=== PATIENT | female | born 1935 | race Caucasian/White ===

== ENCOUNTER 2018-11-04 15:51 | Emergency (ER) | payer MEDICARE, OTHER ==
[~2018-11-04] VITALS: Ht 165.1 cm; Wt 59.1 kg
[2018-11-04 15:52] VITALS: BP 134/68
[2018-11-04] MEDS ORDERED: ATOR1TAB21 PO (16:35)
[2018-11-04] MEDS ORDERED: PLAV1TAB2 PO (16:35)
--- NOTE | 2018-11-04 16:36 | REP ---
Clinical: Trauma . Findings: Age-related atrophy and microvascular ischemic changes are appreciated. The ventricles and sulci are symmetric. Suarez-white differentiation is maintained. There is no evidence for acute intracranial hemorrhage, mass/mass effect, pathology or infarction. No extra-axial fluid collection. Calvarium is intact. Partial opacification of the ethmoid and sphenoid sinuses may reflect mild chronic sinus disease. Impression: Age related atrophy and microvascular ischemic changes. No acute intracranial hemorrhage, infarction, or mass/mass effect. Electronically Signed by Zack Gold MD 11/04/2018 04:27 P
--- NOTE | 2018-11-04 16:40 | REP ---
Clinical: Trauma. Fall. Technique: Axial noncontrast images from the skull base to the thoracic inlet with coronal and sagittal re-formations. Findings: Moderate/advanced multilevel degenerative disc osteophyte complexes are appreciated. No acute fracture / compression injury or acute subluxation noted. Spinal canal is patent. Posterior elements and spinous processes are intact. Paravertebral soft tissues are within normal limits. Lung apices are clear. Impression: Moderate to advanced multilevel degenerative spondylosis. No acute fracture / compression injury or acute subluxation. Electronically Signed by Zack Gold MD 11/04/2018 04:32 P
== END 2018-11-04 17:27 | disposition home or self-care (01) ==
LOC: M ED 15:51
DX: S01.01XA Laceration without foreign body of scalp, initial encounter (principal); W18.39XA Other fall on same level, initial encounter; Y92.89 Other specified places as the place of occurrence of the external cause; I10 Essential (primary) hypertension; Z79.899 Other long term (current) drug therapy; Z79.01 Long term (current) use of anticoagulants; Z88.8 Allergy status to other drugs, medicaments and biological substances

== ENCOUNTER 2018-11-18 11:18 | Inpatient (IN) | payer MEDICARE, OTHER ==
[~2018-11-18] VITALS: Ht 167.6 cm; Wt 71.1 kg
[~2018-11-18 11:18] MED LIST: ATOR1TAB21 PO; PLAV1TAB2 PO
[2018-11-18] MEDS ORDERED: AMLO5TAB6 PO (11:29)
[2018-11-18] MEDS ORDERED: MORPHINE 4 MG/ML 1ML VIAL/SYRINGE (J2270) IV ONE (12:15)
[2018-11-18] MEDS ORDERED: ONDANSETRON 4MG/2ML VIAL (J2405) IV ONE (12:15)
--- NOTE | 2018-11-18 12:44 | REP ---
Left knee series: Five views. History: Trauma. Findings: There is a transversely oriented distracted patellar fracture with marked associated soft-tissue swelling. On lateral radiograph, the two fragments of the patella are by 4.6 cm. No femoral, tibial, or fibular fracture is appreciated. There is diffuse osteopenia. There is moderate medial and lateral compartment osteoarthritis. Electronically Signed by Lj Jordan MD 11/18/2018 12:35 P
[2018-11-18 12:49] LABS: BASO # 0.1 10^3/uL (0.0-0.2); BASO % 0.9 % (0.0-1.0); EOS # 0.1 10^3/uL (0.0-0.50); EOS % 1.2 % (0.0-3.0); HEMOGLOBIN 10.8 g/dl (12.0-15.5); LYMPH # 1.1 10^3/uL (1.5-4.5); MEAN CORPUSCULAR HEMOGLOBIN 34.6 pg (27.0-33.0); MEAN CORPUSCULAR HGB CONC 33.8 g/dl (32.0-36.5); MEAN CORPUSCULAR VOLUME 102.6 fl (80.0-96.0); MONO # 0.5 10^3/uL (0.0-0.8); MONO % 7.4 % (0.0-5.0); NEUTROPHILS # 4.8 10^3/uL (1.8-7.7); NEUTROPHILS % 73.2 % (36.0-66.0); PLATELET COUNT, AUTOMATED 284 10^3/uL (150-450); RED BLOOD COUNT 3.12 10^6/uL (4.00-5.40); WHITE BLOOD COUNT 6.6 10^3/uL (4.0-10.0)
--- NOTE | 2018-11-18 12:51 | REP ---
Pelvis left hip: Three views. History: Trauma. Findings: The patient is rotated to the left for the AP view of the pelvis. The bony pelvic ring is intact. No sacral or pelvic fracture is appreciated. There is osteoarthritis affecting the left hip with acetabular spurring and some joint space narrowing. Femoral heads are smooth and rounded. There is no evidence of hip fracture on either side. Impression: Osteoarthritic changes. No fracture noted. Electronically Signed by Lj Jordan MD 11/18/2018 12:43 P
[2018-11-18 13:05] LABS: INR 1.03; PROTHROMBIN TIME 13.2 SECONDS (11.8-14.0)
[2018-11-18 13:20] LABS: ALBUMIN 3.5 GM/DL (3.2-5.2); ALT/SGPT 36 U/L (12-78); BILIRUBIN,TOTAL 0.5 MG/DL (0.2-1.0); BLOOD UREA NITROGEN 13 MG/DL (7-18); CALCIUM LEVEL 8.7 MG/DL (8.8-10.2); CARBON DIOXIDE LEVEL 23 MEQ/L (21-32); CHLORIDE LEVEL 108 MEQ/L (98-107); CREATININE FOR GFR 0.68 MG/DL (0.55-1.30); GLOMERULAR FILTRATION RATE > 60.0 (>32); GLUCOSE, FASTING 137 MG/DL (70-100); POTASSIUM SERUM 3.7 MEQ/L (3.5-5.1); SODIUM LEVEL 144 MEQ/L (136-145)
--- NOTE | 2018-11-18 13:56 | REP ---
Chest x-ray: Two views. History: Preop. Findings: The lungs are well inflated and free of infiltrate. Cardiomediastinal silhouette is unremarkable. Pleural angles are sharp. No bony abnormality is seen. There are degenerative changes in the shoulders. The thoracic aorta is calcific and somewhat tortuous. Impression: No active disease. Electronically Signed by Lj Jordan MD 11/18/2018 01:48 P
[2018-11-18] MEDS ORDERED: OYST500T91 PO (14:21)
[2018-11-18] MEDS ORDERED: CENT1TAB PO (14:21)
[2018-11-18] MEDS ORDERED: OCUVCAP2 PO (14:21)
[2018-11-18] MEDS ORDERED: ACET25TA12 PO (14:25)
--- NOTE | 2018-11-18 14:31 | CR ---
DATE OF CONSULTATION: 11/18/2018 HISTORY: This is an 83-year-old woman who is actually visiting the area for part of the summer, lives in [facility] but is originally from this area. She fell at a grocery store injuring her left knee. She twisted and fell and likely landed on her left knee. A week ago, she had also had a fall and bruised her left hip and was in the emergency room for evaluation of that. But that was felt to be negative for any fracture, and she has been getting around fine until this event happened. She has had repeat x-rays of her left hip, and also an x-ray of her left knee that showed a transverse displaced patella fracture on the left. I was asked to evaluate her for this. She denies any other injury. ALLERGIES: She has allergies to ASPIRIN, which gives her a rash. MEDICATIONS: Her medications include Plavix, atorvastatin and amlodipine. Current temperature 96.3, pulse 97, blood pressure 148/71, respirations 19, oxygen saturation 99%. SOCIAL HISTORY: She is otherwise active, visiting the area. She ambulates without any assistive device. PAST MEDICAL HISTORY: History of CVA. HTN. REVIEW OF SYSTEMS: She denies any chest pain, shortness of breath. Denies any abdominal pain. Denies any neck or back pain. Denies any endocrine abnormalities. Neurologic is positive for CVA for which she is treated with Plavix. Skin: Otherwise unremarkable. HEENT: Denies any headache or visual problems. PHYSICAL EXAMINATION: She is alert, oriented, in no acute distress. HEENT: Extraocular muscles intact. Pharynx is benign. Neck is supple. Range of motion nonirritable. Cardiac: Regular rate and rhythm. Lungs: Clear. Abdomen: Soft, nontender, nondistended. Right lower extremity is nonirritable. No obvious injury, nontender. Left lower extremity demonstrates a week old bruise over the lateral aspect of her left hip from a contusion but is not irritable to range of motion of her left knee within the limits of the exam. Her left knee demonstrates significant anterior knee swelling. The skin is not compromised. There is some ecchymosis. There is obvious tenderness there. She moves her foot distally, has intact pulses distally. They are 1+. Radiographs were reviewed. Left hip demonstrates no clear evidence of a fracture. She has some underlying arthritic change of her left hip. Demonstrates a transverse displaced patella fracture through the midportion. The inferior pole demonstrates some degree of comminution, which is difficult to fully assess on the x-ray. Often there is more comminution than it appears radiographically. There is underlying osteoarthritis of the left knee. IMPRESSION: Status post fall, 83-year-old woman on Plavix, left knee patellar fracture - displaced. RECOMMENDATIONS: I have explained that these typically would require surgical treatment. There are several options here. One is that we could put her in a knee immobilizer and have her treated closer to home; there is not any emergency to this, but she is not planning on heading back until early December, so she wants to get it taken care of here. The Plavix potentially could be an issue, and this largely stems on what anesthesia wants to do. I would be comfortable fixing this under a tourniquet if they are willing to do a general anesthetic if she is medically optimized for that. I have contacted the operating room. There are several cases ahead of me, but we have tentatively booked her for an open reduction internal fixation of her left patella. I will likely try to use K-wires and tension band; however, a partial patellectomy is also a possibility and she understands this. Sometimes we have to remove a portion or all of the inferior portion of the patella and reattached the tendon to the kneecap. I typically would allow weightbearing as tolerated with a brace on and the knee in extension following this. I have also told her that she needs to get a hold of an orthopedist closer to home who will need to follow this. She understands the nature of procedure, the risks of bleeding, infection, damage to nerves, vessels, persistent pain, malunion, nonunion, loss of reduction, need for hardware removal, blood clots, medical problems and a small risk of in this age group with medical issues. MARVIN
--- NOTE | 2018-11-18 14:36 | HPEPDOC ---
General Date of Admission Date of Service: Nov 18, [address] Lott of the orthopedic service Chief Complaint The patient is a 83-year-old female admitted with a reason for visit of Knee Injury. Source: Patient Exam Limitations: No limitations Timing/Duration: This morning Severity: Severe Associated Symptoms: Mechanical fall History of Present Illness This is an 83-year-old female who is visiting from out of town who had an unfortunate accident at a local supermarket. She apparently slipped on a grape that was on the floor and fell. She has sustained a patellar fracture. There was no dizziness, lightheadedness, or other associated symptoms. Home Medications Scheduled Amlodipine Besylate (Amlodipine Besylate) 5 Mg Tablet, DAILY, (Reported) Atorvastatin Calcium (Atorvastatin Calcium) 20 Mg Tablet, 1 TAB PO DAILY, (Reported) Clopidogrel Bisulfate (Plavix) 75 Mg Tablet, 1 TAB PO DAILY, (Reported) Allergies Coded Allergies: aspirin (Verified Allergy, Intermediate, rash, 11/04/18) Past Medical History Medical History Past medical history is remarkable for history of breast cancer which was treated with mastectomy and radiation. Dyslipidemia. Hypertension. Osteoarthritis Childhood leg fracture History of stroke last year. Patient had a fall a month and a half ago sustaining a scalp laceration from glass. She had significant bleeding associated with that injury because she is on Plavix. Surgical History The aforementioned left mastectomy. Childhood leg fracture repair Family History Significant Family History: Heart disease Patient relates paternal history of cardiac ; her mother was long-lived. Social History * Smoker: Denies (the patient has never smoked) Alcohol: other (daily scotch) Drugs: denies Recent Travel/Sick Contacts: Reports: Recent travel (2. 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 She does have an advanced directive. She states that she is DNR except for surgery. A-FIB/CHADSVASC A-FIB History Current/History of A-Fib/PAF?: No Current PO Anticoag Therapy: No Review of Systems Other systems Review of 10 systems is negative except as stated in the brief presentation Physical Examination General Exam: Positive: Alert, Cooperative, Moderate Distress Eye Exam: Positive: PERRLA, Conjunctiva & lids normal, EOMI ENT Exam: Positive: Atraumatic, Mucous membr. moist/pink, Pharynx Normal, Tongue Midline, Nares Patent Neck Exam: Positive: Supple; Negative: JVD, thyromegaly, +2 carotid pulse wo bruit, Lymphadenopathy, Other Chest Exam: Positive: Clear to auscultation, Normal air movement Heart Exam: Positive: Rate Normal, Regular Rhythm, Normal S1, Normal S2; Negative: Murmurs, Rubs Abdomen Exam: Positive: Normal bowel sounds, Soft; Negative: Tenderness, Hepatospenomegaly Extremity Exam: Positive: Normal pulses (pulse is readily palpable distal to the injury. There is no proximal or distal edema.), Swelling (patient has remarkable tense swelling and apparent hematoma to her left knee surrounding and anterior to the patella. The joint is not mobile at this time ) Skin Exam: Positive: Nl turgor and temperature; Negative: Breakdown, Lesion Neuro Exam: Positive: Normal Speech, Normal Tone, Sensation Intact, Cranial Nerves 3-12 NL Psych Exam: Positive: Mental status NL Vital Signs Vital Signs Date Time Temp Pulse Resp B/P (MAP) Pulse Ox O2 Delivery O2 Flow Rate FiO2 11/18/18 12:56 11/18/18 12:47 17 11/18/18 11:18 96.3 97 99 Room Air Laboratory Data Labs 24H Laboratory Tests 2 11/18/18 12:38: Immature Granulocyte % (Auto) 0.3, White Blood Count 6.6, Red Blood Count 3.12L, Hemoglobin 10.8L, Hematocrit 32.0L, Mean Corpuscular Volume 102.6H, Mean Corpuscular Hemoglobin 34.6H, Mean Corpuscular Hemoglobin Concent 33.8, Red Cell Distribution Width 14.5, Platelet Count 284, Neutrophils (%) (Auto) 73.2H, Lymphocytes (%) (Auto) 17.0L, Monocytes (%) (Auto) 7.4H, Eosinophils (%) (Auto) 1.2, Basophils (%) (Auto) 0.9, Neutrophils # (Auto) 4.8, Lymphocytes # (Auto) 1.1L, Monocytes # (Auto) 0.5, Eosinophils # (Auto) 0.1, Basophils # (Auto) 0.1, Nucleated Red Blood Cells % (auto) 0.0, Prothrombin Time 13.2, Prothromb Time International Ratio 1.03, Activated Partial Thromboplast Time 23.0L, Anion Gap 13, Glomerular Filtration Rate > 60.0, Blood Urea Nitrogen 13, Creatinine 0.68, Sodium Level 144, Potassium Level 3.7, Chloride Level 108H, Carbon Dioxide Level 23, Calcium Level 8.7L, Aspartate Amino Transf (AST/SGOT) 34, Alanine Aminot ransferase (ALT/SGPT) 36, Alkaline Phosphatase 75, Total Bilirubin 0.5, Total Protein 6.0L, Albumin 3.5, Albumin/Globulin Ratio 1.40 CBC/BMP Laboratory Tests 11/18/18 12:38 Red Blood Count 3.12 L, Mean Corpuscular Volume 102.6 H, Mean Corpuscular Hemoglobin 34.6 H, Mean Corpuscular Hemoglobin Concent 33.8, Red Cell Distribution Width 14.5, Neutrophils (%) (Auto) 73.2 H, Lymphocytes (%) (Auto) 17.0 L, Monocytes (%) (Auto) 7.4 H, Eosinophils (%) (Auto) 1.2, Basophils (%) (Auto) 0.9, Neutrophils # (Auto) 4.8, Lymphocytes # (Auto) 1.1 L, Monocytes # (Auto) 0.5, Eosinophils # (Auto) 0.1, Basophils # (Auto) 0.1, Calcium Level 8.7 L, Aspartate Amino Transf (AST/SGOT) 34, Alanine Aminotransferase (ALT/SGPT) 36, Alkaline Phosphatase 75, Total Bilirubin 0.5, Total Protein 6.0 L, Albumin 3.5 Assessment/Plan 1. Patellar fracture--patient has sustained a left patellar fracture. Case has been discussed with orthopedic service; patient can undergo repair today under general anesthesia. She is medically cleared for surgery as she does not have significant cardiopulmonary risk. As she is very active and highly motivated we anticipate she'll recover reasonably well. 2. History of CVA--this event apparently occurred last year. She had been placed on antiplatelet therapy in the form of Plavix. The Plavix does not need to be held for surgery if she undergoes repair by general anesthesia. If she requires spinal anesthesia the Plavix will need to be held for 5 days. The patient will receive appropriate DVT prophylaxis postoperatively. We will also monitor for postop blood loss. We appreciate the rapid response from the orthopedic service. Plan / VTE VTE Prophylaxis Ordered?: No VTE Exclusion Mechanical Proph: Other (patient is en route to the OR) VTE Exclusion Pharmacological: Other (the patient is en route to the OR; will address postoperatively) Plan IVF: Initiate Diet: Make NPO Activity: Bedrest (until postop) Therapy: PT Diagnostics: Repeat Labs in AM Anticipated Discharge: Home Advanced Directives: Do Not Resuscitate (DNR), Health Care Proxy (HCP) (patient does have an advanced directive and healthcare proxy.) MELI CALERO MD Nov 18, 2018 14:36
[2018-11-18] MEDS ORDERED: ONDANSETRON 4MG/2ML VIAL (J2405) IV PRN ×3 (14:45→20:30)
[2018-11-18] MEDS ORDERED: MORPHINE 4 MG/ML 1ML VIAL/SYRINGE (J2270) IV PRN ×3 (14:45→20:15)
[2018-11-18] MEDS ORDERED: NS 1,000 ML IV SCH (15:00)
[2018-11-18] MEDS ORDERED: LIDOCAINE 2% INJ 100 MG/5 ML SDV (FOR ANES.) As Ordered ONE (17:04)
[2018-11-18] MEDS ORDERED: PROPOFOL 200 MG/20 ML VIAL As Ordered ONE (17:04)
[2018-11-18] MEDS ORDERED: SUCCINYLCHOLINE 100 MG/5 ML SYRINGE (J0330) As Ordered ONE (17:04)
[2018-11-18] MEDS ORDERED: MIDAZOLAM INJ 2 MG/2 ML VIAL (J2250) As Ordered ONE (17:04)
[2018-11-18] MEDS ORDERED: fentaNYL 100 MCG/2 ML INJECTION (J3010) As Ordered ONE (17:04)
[2018-11-18] MEDS ORDERED: ceFAZolin 1GM INJ (J0690 PER 500MG) As Ordered ONE (17:12)
[2018-11-18] MEDS ORDERED: ROCURONIUM BROMIDE 50 MG/5 ML VIAL As Ordered ONE (17:40)
[2018-11-18] MEDS ORDERED: dexameTHASONE 4 MG/ML 1ML VIAL (J1100) As Ordered ONE (17:54)
[2018-11-18] MEDS ORDERED: ceFAZolin 2 GM/D5W 50 ML IV BAG (J0690 PER 500MG) As Ordered ONE (17:56)
[2018-11-18] MEDS ORDERED: MORPHINE 10 MG/ML 1ML VIAL (J2270) As Ordered ONE (18:13)
[2018-11-18] MEDS ORDERED: NEOSTIGMINE 10 MG/10 ML VIAL (J2710) As Ordered ONE (18:16)
[2018-11-18] MEDS ORDERED: ONDANSETRON 4MG/2ML VIAL (J2405) As Ordered ONE (18:16)
[2018-11-18] MEDS ORDERED: GLYCOPYRROLATE INJ 0.2 MG/ML 2 ML VIAL As Ordered ONE (18:16)
[2018-11-18 19:58] VITALS: BP 160/71
[2018-11-18] MEDS ORDERED: LR 1,000 ML IV SCH ×2 (20:00→20:15)
[2018-11-18] MEDS ORDERED: fentaNYL 100 MCG/2 ML INJECTION (J3010) IV PRN (20:00)
[2018-11-18] MEDS ORDERED: MORPHINE 10 MG/ML 1ML VIAL (J2270) IV PRN (20:00)
[2018-11-18 21:00] VITALS: BP 165/82
[2018-11-18] MEDS ORDERED: ACETAMINOPHEN TAB 650MG DOSE (2X325MG) PO PRN (21:15)
[2018-11-18] MEDS ORDERED: FLEET ENEMA PR PRN (21:15)
[2018-11-18 22:00] VITALS: BP 142/74
[2018-11-19] VITALS: BP_SYST 132; BP_SYST 133; BP_DIAS 67; BP_DIAS 78
[2018-11-19] MEDS: NORCO, ANEXSIA 5/325MG TABLET (HYDROcodone/ACETAMINOPHEN) PO PRN ×2 (00:04→04:07)
[2018-11-19 04:00] VITALS: BP 143/69
[2018-11-19 06:00] VITALS: BP 136/76
[2018-11-19] MEDS: ACETAMINOPHEN 500 MG TAB PO SCH ×3 (06:00→21:14)
[2018-11-19] MEDS ORDERED: traMADol 50 MG TAB PO PRN (06:15)
[2018-11-19 07:03] LABS: HEMATOCRIT 26.3 % (36.0-47.0); MEAN CORPUSCULAR HEMOGLOBIN 32.6 pg (27.0-33.0); MEAN CORPUSCULAR HGB CONC 32.3 g/dl (32.0-36.5); MEAN CORPUSCULAR VOLUME 100.8 fl (80.0-96.0); PLATELET COUNT, AUTOMATED 273 10^3/uL (150-450); RED BLOOD COUNT 2.61 10^6/uL (4.00-5.40)
[2018-11-19 07:06] LABS: HEMOGLOBIN 8.5 g/dl (12.0-15.5)
[2018-11-19 07:17] LABS: BLOOD UREA NITROGEN 15 MG/DL (7-18); CALCIUM LEVEL 8.2 MG/DL (8.8-10.2); CARBON DIOXIDE LEVEL 23 MEQ/L (21-32); CHLORIDE LEVEL 107 MEQ/L (98-107); CREATININE FOR GFR 0.59 MG/DL (0.55-1.30); GLOMERULAR FILTRATION RATE > 60.0 (>32); GLUCOSE, FASTING 142 MG/DL (70-100); SODIUM LEVEL 140 MEQ/L (136-145)
--- NOTE | 2018-11-19 07:36 | REP ---
Left knee two views postoperative study: Comparison is 11/18/2018. The superior fragment of the patient's known patellar fracture is no longer visible. There is a bony fragment posterior to the femoral condyles on the lateral view, not present on the preoperative study. There are midline longitudinal skin marvin anteriorly. Intra-articular air and fluid are identified, likely postsurgical change. Tricompartment osteoarthritis is unchanged. Electronically Signed by Bunny Jack MD 11/19/2018 07:28 A
--- NOTE | 2018-11-19 07:36 | REP ---
Left knee intraoperative fluoroscopic views: There are two intraoperative fluoroscopic views. Comparison is from earlier this same date. The inferior fragment of the patient's known patellar fracture is no longer visible. The there is a bony fragment posterior to the femoral condyles, not present on the preoperative study earlier this same date. Electronically Signed by Bunny Jack MD 11/19/2018 07:27 A
[2018-11-19 08:00] VITALS: BP 166/72
[2018-11-19] MEDS: MIRALAX *UNIT DOSE* 17GM PACKET PO SCH (09:44)
[2018-11-19] MEDS: MOM 30ML SUSPENSION UDC PO SCH (09:44)
--- NOTE | 2018-11-19 11:57 | RO ---
DATE OF PROCEDURE: 11/18/2018 PREOPERATIVE DIAGNOSIS: Left patella fracture, comminuted. POSTOPERATIVE DIAGNOSIS: Left patella fracture, comminuted. PROCEDURE: Left patella partial patellectomy of inferior pole and repair of patellar tendon to proximal pole of patella. SURGEON: Jean Lott MD INTEGRATION CONSULTANT: ANESTHESIA: General. ESTIMATED BLOOD LOSS: 200 mL. COMPLICATIONS: None. INDICATIONS: This is an 83-year-old woman who fell today injuring her patella. She had a displaced patella fracture with a disrupted extensor mechanism as a result. She wished to go ahead with surgical treatment. I explained that these are typically treated surgically in order to restore the ability to extend the knee actively and ambulate. She understood the nature this, the risks of bleeding, infection, damage to nerves, vessels, persistent pain, malunion, nonunion, loss of reduction, need for hardware removal, blood clots, medical problems, , among others. She understood there was certainly a possibility that I would have to take a portion of the patella out depending upon the degree of comminution. DESCRIPTION OF PROCEDURE: The patient was taken to the operating room, placed in the supine position after general anesthesia was induced. A time-out was performed. I took some initial C-arm images to confirm that we could visualize the knee appropriately. We prepped and draped the knee in the usual fashion. A time-out was performed and tourniquet was inflated. I then created a longitudinal incision over the anterior aspect of the knee and sharp dissection was carried down through subcutaneous tissue. She had fairly copious subcutaneous edema with about one-half to three-quarters of an inch of edematous subcutaneous tissue before I entered into the very large hematoma and hemarthrosis. Much of this was clotted. I evacuated the hematoma from the knee and the periarticular spaces with a suction and copious irrigation. Some of the clots were removed by my hand. Once I was satisfied with the decompression of the hematoma and hemarthrosis, I again irrigated and visualized the patellar component. The superior pole was intact without evidence of fracture and the articular surface was intact. There was some degree of arthritic change in the knee. The inferior pole of the patella was highly comminuted and the largest fragment was approximately three-quarters of a centimeter in length and width. There were multiple, multiple small fragments and multiple small fragments attached to the proximal aspect of the patellar tendon. I felt this was not amendable to open reduction, internal fixation (ORIF). I elected to go with an inferior pole partial patellectomy and repair of the extensor mechanism. A cottony Deknatel suture was used starting at the proximal aspect of the patellar tendon in the center of the patellar tendon and placed several stitches through the medial aspect of the patellar tendon working my way distally and then proximally entering more medially more bringing the suture out through the proximal aspect of the tendon. The same procedure was repeated with a FiberWire. I elected to use two different color permanent sutures so I could easily identify them too tie them. So, the FiberWire was started again at the proximal aspect of patellar tendon working my way down the center and lateral aspect of the tendon and backup exiting at the lateral proximal patellar tendon. There was some overlying soft tissue that I was later able to repair over the patella. I then used a [address] three holes in the patella starting at the fracture side, exiting proximally and slightly anterior, and I used a TakeCharge suture passer to retrieve one suture through the lateral hole, two sutures through the central hole, and one suture through the medial hole. The patella and the tendon were approximated. The knee was in extension and I tied the cottony Deknatel suture first making sure there was good contact with the patellar tendon and the patella. The same procedure was performed with the FiberWire. Excellent repair was noted. I again irrigated and repaired the retinaculum with #1 Vicryl suture on both sides and also oversewed this layer of tissue along the anterior aspect of the patella. I was able to flex the knee up to 90 degrees with no separation or undue tension on the repair. Final irrigation was performed. I closed the subcu with #2-0 Vicryl and the skin with marvin. Sterile dressing was applied. Tourniquet was deflated, and she was taken to recovery room in stable condition. There were no known complications. The plan will be routine postop for a partial patellectomy and extensor mechanism repair. I will keep her in a knee immobilizer with her knee out in extension, possibly go to a hinged T scope tight brace down the road, but we will keep her knee out in extension. We will allow weightbearing as tolerated. After an appropriate amount of time of healing, then we can allow some active flexion approximately 4-6 weeks. Then, we can start passive flexion and active extension at a later date, probably closer to 10-12 weeks. She will be following up in [facility] eventually where she lives. At this point, I am going to put her on Xarelto because she has been on Plavix and Plavix is not an adequate medication for deep venous thrombosis (DVT) prophylaxis and I cannot add aspirin due to allergy. It will be up to the medical service whether they decide to also keep her on her Plavix but it may make sense to do the Xarelto, then restart the Plavix after 2 weeks of being on Xarelto. MTDD
[2018-11-19] MEDS ORDERED: SLF 3 ML SYR IV PRN (13:45)
[2018-11-19] MEDS: SLF 3 ML SYR IV SCH ×2 (14:57→21:14)
[2018-11-19 16:00] VITALS: BP 135/64
[2018-11-19] MEDS: RIVAROXABAN 10 MG TAB (XARELTO) PO SCH (18:48)
--- NOTE | 2018-11-19 20:24 | IPNPDOC ---
Text Note Date of Service The patient was seen on 11/19/18. NOTE Patient is postoperative day #1 from repair of her patellar fracture. She is doing fairly well. Her pain is controlled. She is not yet mobile Physical exam: General: She is supine in bed in no distress, pain is controlled. HENT: Neck is supple, there is no adenopathy or thyromegaly, oral mucosa is moist, there is no scleral icterus. Cardiovascular: Regular rate and rhythm with a normal S1 and S2, no appreciable murmur. Respiratory: Bilaterally clear to auscultation with good air movement. Abdomen: Soft, nontender, nondistended, no central obesity, bowel tones present. Extremities: Left lower extremity is wrapped in compression bandage and then placed within a large brace. Neuro: There is no focal neuromotor or sensory deficit; mobility is limited by injury. 1. Patellar fracture--patient has sustained a left patellar fracture. The patient has undergone repair under general anesthesia. She is in an immobilizing brace. She will maintain straight leg for 6-8 weeks; she can bear weight as tolerated. 2. History of CVA--this event apparently occurred last year. She had been placed on antiplatelet therapy in the form of Plavix. Plavix has been discontinued as she is on Xarelto for DVT prophylaxis. The patient has an allergy to aspirin; Plavix can perhaps be resumed at a later date once she is off of Xarellto. We will monitor for postop blood loss. We appreciate the rapid response from the orthopedic service. 3. CODE STATUS--the patient has stated that she was to be DNR/DNI. This television script writer has reviewed the MOLST form with her and she has signed it. VS,Eyal, I+O VS, Marcelae, I+O Laboratory Tests 11/19/18 06:17 Red Blood Count 2.61 L, Mean Corpuscular Volume 100.8 H, Mean Corpuscular Hemoglobin 32.6, Mean Corpuscular Hemoglobin Concent 32.3, Red Cell Distribution Width 14.5, Calcium Level 8.2 L Vital Signs Date Time Temp Pulse Resp B/P (MAP) Pulse Ox O2 Delivery O2 Flow Rate FiO2 11/19/18 16:00 97.4 76 18 135/64 (87) 99 11/19/18 10:14 2.0 11/18/18 11:18 Room Air I&O- Last 24 Hours up to 6 AM 11/19/18 06:00 Intake Total 1240 ml Output Total 700 ml Balance 540 ml MELI CALERO MD Nov 19, 2018 20:24
--- NOTE | 2018-11-19 20:29 | ECGEPIP ---
[place] - ED Test Date: 2018-11-18 Pat Name: YVONNE PRIEST Department: Room: [place] [address] Gender: Female Manager Servicing: FABRICE : 1935 Requested By: Linnea Gann PA-C ER Order Number: [id number] Reading MD: Ayush Schumacher Measurements Intervals [place] Rate: 91 P: 86 [place]: 168 QRS: 21 QRSD: 86 T: 64 QT: 399 QTc: 491 Interpretive Statements SINUS RHYTHM Low QRS complex voltage in the limb leads Prolonged QTc interval Nonspecific T wave abnormality Comparison tracing not on file Electronically Signed on 11-19-2018 20:29:05 EDT by Ayush Schumacher
[2018-11-19 22:00] VITALS: BP 131/61
[2018-11-20 02:00] VITALS: BP 127/63
[2018-11-20] MEDS: ACETAMINOPHEN 500 MG TAB PO SCH ×3 (05:35→21:00)
[2018-11-20] MEDS: SLF 3 ML SYR IV SCH ×3 (05:44→21:01)
[2018-11-20 06:00] VITALS: BP 130/63
[2018-11-20 07:57] LABS: BASO % 0.4 % (0.0-1.0); EOS # 0.1 10^3/uL (0.0-0.50); EOS % 0.9 % (0.0-3.0); HEMATOCRIT 24.7 % (36.0-47.0); HEMOGLOBIN 8.1 g/dl (12.0-15.5); LYMPH # 1.3 10^3/uL (1.5-4.5); LYMPH % 15.7 % (24.0-44.0); MEAN CORPUSCULAR HEMOGLOBIN 33.9 pg (27.0-33.0); MEAN CORPUSCULAR HGB CONC 32.8 g/dl (32.0-36.5); MEAN CORPUSCULAR VOLUME 103.3 fl (80.0-96.0); MONO # 0.7 10^3/uL (0.0-0.8); MONO % 8.1 % (0.0-5.0); NEUTROPHILS # 6.1 10^3/uL (1.8-7.7); NEUTROPHILS % 74.5 % (36.0-66.0); PLATELET COUNT, AUTOMATED 251 10^3/uL (150-450); RED BLOOD COUNT 2.39 10^6/uL (4.00-5.40); WHITE BLOOD COUNT 8.1 10^3/uL (4.0-10.0)
[2018-11-20 08:20] LABS: BLOOD UREA NITROGEN 8 MG/DL (7-18); CALCIUM LEVEL 7.8 MG/DL (8.8-10.2); CARBON DIOXIDE LEVEL 29 MEQ/L (21-32); CHLORIDE LEVEL 104 MEQ/L (98-107); CREATININE FOR GFR 0.56 MG/DL (0.55-1.30); GLOMERULAR FILTRATION RATE > 60.0 (>32); GLUCOSE, FASTING 98 MG/DL (70-100); MAGNESIUM LEVEL 2.3 MG/DL (1.8-2.4); POTASSIUM SERUM 3.4 MEQ/L (3.5-5.1); SODIUM LEVEL 138 MEQ/L (136-145)
[2018-11-20] MEDS: MOM 30ML SUSPENSION UDC PO SCH (08:52)
[2018-11-20] MEDS: MIRALAX *UNIT DOSE* 17GM PACKET PO SCH (08:52)
[2018-11-20] MEDS ORDERED: POTASSIUM CHLORIDE 10 MEQ SR TABLET PO ONE (09:30)
[2018-11-20 14:00] VITALS: BP 120/48
--- NOTE | 2018-11-20 16:05 | IPNPDOC ---
Text Note Date of Service The patient was seen on 11/20/18. NOTE Subjective: Patient was seen and examined at the bedside. Patient reports that she does not experience chest pain, shortness of breath or palpitations. She reports that her left knee is feeling slightly better. Has been working with physical therapy. She denies any nausea, vomiting, abdominal pain or diarrhea. Objective: Vitals (See below) General: Lying in bed, no acute distress, comfortable, AAOx3 HEENT: NC, AT CVS: +S1S2 Lungs: Fair air entry b/l, -w/r/r Abdomen: Soft, ND, NT Extremities: L knee immobilizer, - Edema, - Calf tenderness Assessment and plan: Patellar fracture - s/p repair (POD#2) - s/p Left patella partial patellectomy of inferior pole and repair of patellar tendon to proximal pole of patella (11/18/2018) - c/w knee immobilizer - c/w PT and OT - Looking into ARU placement Hx of CVA - Has been on Plavix; however this was changed to Xarelto for DVT prophylaxis - Plavix can be resumed once Xarelto has been removed for DVT prophylaxis Breast cancer - s/p mastectomy and radiation Dyslipidemia - Will resume Atorvastatin Hypertension - BP moderately controlled - Will resume Amlodipine Osteoarthritis - c/w current pain regimen DVT prophylaxis - c/w Xarelto; as per orthopedic service Code status: - DNR / DNI VS,Fishbone, I+O VS, Fishbone, I+O Laboratory Tests 11/20/18 07:37 Red Blood Count 2.39 L, Mean Corpuscular Volume 103.3 H, Mean Corpuscular Hemoglobin 33.9 H, Mean Corpuscular Hemoglobin Concent 32.8, Red Cell Distribution Width 14.3, Neutrophils (%) (Auto) 74.5 H, Lymphocytes (%) (Auto) 1 5.7 L, Monocytes (%) (Auto) 8.1 H, Eosinophils (%) (Auto) 0.9, Basophils (%) (Auto) 0.4, Neutrophils # (Auto) 6.1, Lymphocytes # (Auto) 1.3 L, Monocytes # (Auto) 0.7, Eosinophils # (Auto) 0.1, Basophils # (Auto) 0.0, Calcium Level 7.8 L Vital Signs Date Time Temp Pulse Resp B/P (MAP) Pulse Ox O2 Delivery O2 Flow Rate FiO2 11/20/18 06:00 97.7 73 16 130/63 (85) 96 11/19/18 10:14 2.0 11/18/18 11:18 Room Air I&O- Last 24 Hours up to 6 AM 11/20/18 06:00 Intake Total 1040 ml Output Total 900 ml Balance 140 ml ANAHI SINGLETARY MD Nov 20, 2018 16:04
[2018-11-20] MEDS: MULTIVITAMINS/MINERALS THERAP 1 TAB PO SCH (16:47)
[2018-11-20] MEDS: amLODIPine 5 MG TAB PO SCH (16:47)
[2018-11-20] MEDS: RIVAROXABAN 10 MG TAB (XARELTO) PO SCH (18:15)
[2018-11-20] MEDS: ATORVASTATIN 20 MG TAB PO SCH (21:00)
[2018-11-20 22:00] VITALS: BP 132/60
[2018-11-21 02:00] VITALS: BP 140/65
[2018-11-21] MEDS: ACETAMINOPHEN 500 MG TAB PO SCH ×3 (05:11→21:20)
[2018-11-21] MEDS: SLF 3 ML SYR IV SCH ×3 (05:11→21:21)
[2018-11-21 06:00] VITALS: BP 157/71
[2018-11-21] MEDS ORDERED: XARE10TA PO (06:41)
[2018-11-21] MEDS ORDERED: HYDR-3713 PO ×2 (06:41→06:47)
[2018-11-21] MEDS: MIRALAX *UNIT DOSE* 17GM PACKET PO SCH (08:26)
[2018-11-21] MEDS: MOM 30ML SUSPENSION UDC PO SCH (08:26)
[2018-11-21] MEDS: MULTIVITAMINS/MINERALS THERAP 1 TAB PO SCH (08:27)
[2018-11-21] MEDS: amLODIPine 5 MG TAB PO SCH (08:28)
--- NOTE | 2018-11-21 13:46 | IPNPDOC ---
Text Note Date of Service The patient was seen on 11/21/18. NOTE Subjective: Patient was seen and examined at the bedside. Patient has no new complaints today. Reports that she is not in any pain. Patient has been denied by her insurance for acute rehabilitation unit. Currently, PFS / Case management is looking into placement at subacute rehabilitation center or potentially clearance of discharge home. Objective: Vitals (See below) General: Lying in bed, no acute distress, comfortable, AAOx3 HEENT: NC, AT CVS: +S1S2 Lungs: Fair air entry b/l, no evidence of wheezing, rhonchi, rales Abdomen: Soft, nondistended, nontender Extremities: L knee immobilizer in place, no evidence of edema, - Calf tenderness Assessment and plan: Patellar fracture - s/p repair (POD#3) - s/p Left patella partial patellectomy of inferior pole and repair of patellar tendon to proximal pole of patella (11/18/2018) - c/w knee immobilizer - c/w PT and OT; possible transition to subacute rehabilitation center or home with services Hx of CVA - Has been on Plavix; however this was changed to Xarelto for DVT prophylaxis - Plavix can be resumed once Xarelto has been removed for DVT prophylaxis Breast cancer - s/p mastectomy and radiation Dyslipidemia - c/w Atorvastatin Hypertension - BP moderately controlled - c/w Amlodipine Osteoarthritis - c/w current pain regimen DVT prophylaxis - c/w Xarelto; as per orthopedic service Code status: - DNR / DNI Disposition: - Anticipated discharge within next 24-48 hours VS,Eyal, I+O VS, Fishbone, I+O Vital Signs Date Time Temp Pulse Resp B/P (MAP) Pulse Ox O2 Delivery O2 Flow Rate FiO2 11/21/18 08:28 64 157/71 11/21/18 06:00 97.4 18 96 11/19/18 10:14 2.0 11/18/18 11:18 Room Air I&O- Last 24 Hours up to 6 AM 11/21/18 06:00 Intake Total 1760 ml Output Total 850 ml Balance 910 ml ANAHI SINGLETARY MD Nov 21, 2018 13:46
[2018-11-21] MEDS: RIVAROXABAN 10 MG TAB (XARELTO) PO SCH (17:42)
[2018-11-21] MEDS: ATORVASTATIN 20 MG TAB PO SCH (21:19)
[2018-11-21 22:00] VITALS: BP 132/64
[2018-11-22 06:00] VITALS: BP 141/71
[2018-11-22] MEDS: ACETAMINOPHEN 500 MG TAB PO SCH ×2 (06:38→14:00)
[2018-11-22] MEDS: SLF 3 ML SYR IV SCH ×2 (06:39→15:02)
[2018-11-22 08:08] VITALS: BP 140/71
[2018-11-22] MEDS: MOM 30ML SUSPENSION UDC PO SCH (08:08)
[2018-11-22] MEDS: amLODIPine 5 MG TAB PO SCH (08:08)
[2018-11-22] MEDS: MIRALAX *UNIT DOSE* 17GM PACKET PO SCH (08:08)
[2018-11-22] MEDS: MULTIVITAMINS/MINERALS THERAP 1 TAB PO SCH (08:08)
[2018-11-22 08:10] LABS: BASO % 0.9 % (0.0-1.0); EOS # 0.2 10^3/uL (0.0-0.50); EOS % 4.6 % (0.0-3.0); HEMATOCRIT 23.8 % (36.0-47.0); HEMOGLOBIN 7.8 g/dl (12.0-15.5); LYMPH # 1.1 10^3/uL (1.5-4.5); LYMPH % 24.5 % (24.0-44.0); MEAN CORPUSCULAR HEMOGLOBIN 34.4 pg (27.0-33.0); MEAN CORPUSCULAR HGB CONC 32.8 g/dl (32.0-36.5); MEAN CORPUSCULAR VOLUME 104.8 fl (80.0-96.0); MONO # 0.4 10^3/uL (0.0-0.8); MONO % 8.1 % (0.0-5.0); NEUTROPHILS # 2.8 10^3/uL (1.8-7.7); NEUTROPHILS % 61.2 % (36.0-66.0); PLATELET COUNT, AUTOMATED 263 10^3/uL (150-450); RED BLOOD COUNT 2.27 10^6/uL (4.00-5.40); WHITE BLOOD COUNT 4.6 10^3/uL (4.0-10.0)
[2018-11-22 08:34] LABS: BLOOD UREA NITROGEN 7 MG/DL (7-18); CALCIUM LEVEL 8.3 MG/DL (8.8-10.2); CARBON DIOXIDE LEVEL 25 MEQ/L (21-32); CHLORIDE LEVEL 109 MEQ/L (98-107); CREATININE FOR GFR 0.37 MG/DL (0.55-1.30); GLOMERULAR FILTRATION RATE > 60.0 (>32); GLUCOSE, FASTING 113 MG/DL (70-100); MAGNESIUM LEVEL 2.1 MG/DL (1.8-2.4); POTASSIUM SERUM 3.8 MEQ/L (3.5-5.1); SODIUM LEVEL 140 MEQ/L (136-145)
[2018-11-22 10:00] VITALS: BP 138/63
[2018-11-22 14:00] VITALS: BP 136/63
--- NOTE | 2018-11-22 15:23 | DS.PDOC ---
Discharge Summary General Date of Admission Nov 18, 2018 at 14:36 Date of Discharge 11/22/2018 Discharge Summary PROCEDURES PERFORMED DURING STAY: Left patella partial patellectomy of inferior pole and repair of patellar tendon to proximal pole of patella with Dr. Jean Lott on 11/18/2018 ADMITTING DIAGNOSES / DISCHARGE DIAGNOSES: Patellar fracture - s/p repair (POD#3) Hx of CVA Breast cancer Dyslipidemia Hypertension Osteoarthritis DVT prophylaxis COMPLICATIONS/CHIEF COMPLAINT: Left knee pain HISTORY OF PRESENT ILLNESS: Patient is an 83-year-old female with a past medical history of dyslipidemia, hypertension, osteoarthritis, history of stroke last year who presented to the emergency room after she had slipped and fallen after she had stepped on a great. Patient sustained left knee pain and was brought to emergency room for further evaluation. Patient was found to have a left patellar fracture and was admitted to the hospitalist service for further evaluation and treatment. Orthopedic surgery was called on consultation HOSPITAL COURSE: Patellar fracture - s/p repair (POD#4) - s/p Left patella partial patellectomy of inferior pole and repair of patellar tendon to proximal pole of patella (11/18/2018) - c/w knee immobilizer - c/w PT and OT; possible transition to subacute rehabilitation center or home with services Hx of CVA - Has been on Plavix; however this was changed to Xarelto for DVT prophylaxis - Plavix can be resumed once Xarelto has been removed for DVT prophylaxis Breast cancer - s/p mastectomy and radiation Dyslipidemia - c/w Atorvastatin Hypertension - BP moderately controlled - c/w Amlodipine Osteoarthritis - c/w current pain regimen DVT prophylaxis - c/w Xarelto; as per orthopedic service DISCHARGE MEDICATIONS: Please see below. ALLERGIES: Please see below. PHYSICAL EXAMINATION ON DISCHARGE: Vitals (See below) General: Lying in bed, no acute distress, comfortable, AAOx3 HEENT: NC, AT CVS: +S1S2 Lungs: Fair air entry b/l, auscultation is without wheezing, rhonchi or rales Abdomen: Soft, without distention or tenderness Extremities: L knee immobilizer in place, no evidence of lower extremity edema, - Calf tenderness LABORATORY DATA: Please see below. ACTIVITY: [As tolerated]. DISCHARGE PLAN: Follow-up with Dr. Jean Lott within the next 7 days Remain compliant with treatment plan and medications Return to the ER if you experience any problems DISPOSITION: Home with services DISCHARGE CONDITION: [Stable]. TIME SPENT ON DISCHARGE: 37 minutes Vital Signs/I&Os Vital Signs Date Time Temp Pulse Resp B/P (MAP) Pulse Ox O2 Delivery O2 Flow Rate FiO2 11/22/18 10:00 97.0 87 18 138/63 (88) 98 11/19/18 10:14 2.0 11/18/18 11:18 Room Air I&O- Last 24 Hours up to 6 AM 11/22/18 06:00 Intake Total 2630 ml Output Total 400 ml Balance 2230 ml Laboratory Data Labs 24H Laboratory Tests 2 11/22/18 07:43: Immature Granulocyte % (Auto) 0.7, White Blood Count 4.6, Red Blood Count 2.27L, Hemoglobin 7.8L, Hematocrit 23.8L, Mean Corpuscular Volume 104.8H, Mean Co rpuscular Hemoglobin 34.4H, Mean Corpuscular Hemoglobin Concent 32.8, Red Cell Distribution Width 14.1, Platelet Count 263, Neutrophils (%) (Auto) 61.2, Lymphocytes (%) (Auto) 24.5, Monocytes (%) (Auto) 8.1H, Eosinophils (%) (Auto) 4.6H, Basophils (%) (Auto) 0.9, Neutrophils # (Auto) 2.8, Lymphocytes # (Auto) 1.1L, Monocytes # (Auto) 0.4, Eosinophils # (Auto) 0.2, Basophils # (Auto) 0.0, Nucleated Red Blood Cells % (auto) 0.0, Anion Gap 6L, Glomerular Filtration Rate > 60.0, Blood Urea Nitrogen 7, Creatinine 0.37L, Sodium Level 140, Potassium Level 3.8, Chloride Level 109H, Carbon Dioxide Level 25, Calcium Level 8.3L, Magnesium Level 2.1 CBC/BMP Laboratory Tests 11/22/18 07:43 Red Blood Count 2.27 L, Mean Corpuscular Volume 104.8 H, Mean Corpuscular Hemoglobin 34.4 H, Mean Corpuscular Hemoglobin Concent 32.8, Red Cell Distribution Width 14.1, Neutrophils (%) (Auto) 61.2, Lymphocytes (%) (Auto) 24.5, Monocytes (%) (Auto) 8.1 H, Eosinophils (%) (Auto) 4.6 H, Basophils (%) (Auto) 0.9, Neutrophils # (Auto) 2.8, Lymphocytes # (Auto) 1.1 L, Monocytes # (Auto) 0.4, Eosinophils # (Auto) 0.2, Basophils # (Auto) 0.0, Calcium Level 8.3 L Discharge Medications Scheduled Acetaminophen/Diphenhydramine (Acetaminophen Pm Caplet) 1 Each Tablet, 1 TAB PO QHS, (Reported) PT TAKES 2ND DOSE IF SHE WAKES UP AT NIGHT Amlodipine Besylate (Amlodipine Besylate) 5 Mg Tablet, 5 MG PO DAILY, (Reported) Atorvastatin Calcium (Atorvastatin Calcium) 20 Mg Tablet, 20 MG PO QHS, (Reported) C,E,Zinc,Copper 24/Om3/Lut/Rao (Ocuvite Adult 50 Plus Softgel) 1 Each Capsule, 1 CAP PO DAILY, (Reported) Calcium Carbonate/Vitamin D3 (Calcium 500-Vit D3 200 Tablet) 1 Each Tablet, 2 TAB PO DAILY, (Reported) Clopidogrel Bisulfate (Plavix) 75 Mg Tablet, 75 MG PO DAILY, (Reported) Multivit-Min/FA/Lycopen/Lutein (Centrum Silver Tablet) 1 Each Tablet, 1 TAB PO DAILY, (Reported) Rivaroxaban (Xarelto) 10 Mg Tablet, 10 MG PO DAILY Scheduled PRN Hydrocodone/Acetaminophen (Hydrocodone-Acetamin 5-325 mg) 1 Each Tablet, 1-2 TAB PO Q4H PRN for PAIN Allergies Coded Allergies: aspirin (Verified Allergy, Intermediate, rash, 11/04/18) ANAHI SINGLETARY MD Nov 22, 2018 15:22
[2018-11-22] MEDS: RIVAROXABAN 10 MG TAB (XARELTO) PO SCH (17:39)
== END 2018-11-22 17:47 | disposition home health service (06) | DRG 489 ==
LOC: M ED 11:18 → M ED INP 14:36 → M PCU 19:59 → M MSPAV 11-19 17:32
PROVIDERS: ADMIT Internal Medicine; ATTEND Internal Medicine
PROC: 0QC Lower Bones, Extirpation (ICD-10-PCS; 2018-11-18)
PROC: 0QQF0ZZ Repair Left Patella, Open Approach (ICD-10-PCS; 2018-11-18)
PROC: 0QBF0ZZ Excision of Left Patella, Open Approach (ICD-10-PCS; principal; 2018-11-18 13:38)
DX: S82.032A Displaced transverse fracture of left patella, initial encounter for closed fracture (principal); I10 Essential (primary) hypertension; W01.0XXA Fall on same level from slipping, tripping and stumbling without subsequent striking against object, initial encounter; Y92.512 Supermarket, store or market as the place of occurrence of the external cause; E78.5 Hyperlipidemia, unspecified; M19.90 Unspecified osteoarthritis, unspecified site; Z86.73 Personal history of transient ischemic attack (TIA), and cerebral infarction without residual deficits; Z79.02 Long term (current) use of antithrombotics/antiplatelets; Z66 Do not resuscitate; Z88.6 Allergy status to analgesic agent; Z79.899 Other long term (current) drug therapy; Z85.3 Personal history of malignant neoplasm of breast; Z92.3 Personal history of irradiation; Z90.12 Acquired absence of left breast and nipple